=== PATIENT | female | born 1945 | race American Indian/Alaskan Native ===

== ENCOUNTER 2019-06-11 10:28 | Outpatient (CLI) | payer MEDICARE, BC ==
--- NOTE | 2019-06-11 11:27 | Fluoroscopy Report ---
BARIUM SWALLOW Indication: K21.9) GERD/R13.0) DYSPHAGIA. Technique: Single contrast barium technique utilized to evaluate the esophagus. FINDINGS: To begin the exam, swallowing was evaluated in the lateral position under direct fluorosco py. Swallowing was normal. No mucosal irregularity, mass, mass effect, or critical stenosis. Occasional tertiary contractions of the mid to distal esophagus were witnessed during this exam consistent with mild esophageal dysmot ility. No gastroesophageal reflux. No hiatal hernia was seen. The patient was able to ingest a barium tablet without difficulty. IMPRESSION: Mild esophageal dysmotility. Fluoroscopic time: 1.0 minutes Number of fluoroscopic images: 24 Signer Name: Brandan Morris Jr, MD Signed: 06/11/2019 11:23 AM Workstation Name: [id number]
== END 2019-06-11 10:29 | disposition home or self-care (01) ==
LOC: FLUORO 10:28
PROVIDERS: ATTEND Internal Medicine Gastroenterology
DX: K21.9 Gastro-esophageal reflux disease without esophagitis (principal); R13.10 Dysphagia, unspecified
CPT/HCPCS: 74220

== ENCOUNTER 2020-05-01 10:36 | Outpatient (CLI) | payer MEDICARE, BC ==
--- NOTE | 2020-05-01 12:43 | Mammography Report ---
DIGITAL SCREENING MAMMOGRAM WITH CAD, 05/01/2020 INDICATION: Routine screening mammography. TECHNIQUE: Digital bilateral 2D mammography was obtained in the craniocaudal and mediolateral obliq ue projections. This examination was interpreted with the benefit of Computer-Aided Detection analysi s. COMPARISON: 01/10/2019, 08/24/2016 FINDINGS: Breast Density: The breasts are almost entirely fatty. There is no evidence of dominant mass, suspicious calcifications or architectural distortion in eithe r breast. IMPRESSION: Follow up recommendation: Routine yearly BI-RADS Category 1: Negative. A "normal" or negative report should not discourage follow up or biopsy of a clinically significant f inding. A written summary of these findings will be mailed to the patient. The patient will be entered into a mammography reporting system which will generate a reminder letter for the patient's next appointmen t at the appropriate interval. The [employer] recommends yearly mammograms starting at age 40 and continuing as l maria d as a woman is in good health. Breast MRI is recommended for women with an approximate 20-25% or greater lifetime risk of breast cancer, including women with a strong family history of breast or ova tri cancer or who have been treated for Hodgkin's disease. Signer Name: Wolf Amos MD Signed: 05/01/2020 12:38 PM Workstation Name: [id number]
--- NOTE | 2020-05-01 13:05 | XRay Report ---
CHEST 2 VIEWS INDICATION / CLINICAL INFORMATION: 786.2 COUGH. COMPARISON: None available. FINDINGS: SUPPORT DEVICES: None. HEART / MEDIASTINUM: No significant abnormality. LUNGS / PLEURA: No significant pulmonary or pleural abnormality. No pneumothorax. ADDITIONAL FINDINGS: Degenerative change in the thoracic spine IMPRESSION: No acute disease Signer Name: Patrick March MD FACR Signed: 05/01/2020 1:00 PM Workstation Name: [id number]
== END 2020-05-01 10:37 | disposition home or self-care (01) ==
LOC: MAMMO 10:36
PROVIDERS: ATTEND Internal Medicine
DX: Z12.31 Encounter for screening mammogram for malignant neoplasm of breast (principal); R05 Cough
CPT/HCPCS: 71046; 77067

== ENCOUNTER 2021-11-27 09:24 | Outpatient (CLI) | payer MEDICARE, BC ==
--- NOTE | 2021-11-30 13:03 | Mammography Report ---
DIGITAL SCREENING MAMMOGRAM WITH CAD, 11/27/2021 CLINICAL INFORMATION / INDICATION: Routine screening mammography. SCREENING MAMMOGRAM TECHNIQUE: Digital bilateral 2D mammography was obtained in the craniocaudal and mediolateral obliqu e projections. This examination was interpreted with the benefit of Computer-Aided Detection analysis . COMPARISON: 04/16/2015 through 05/01/2020. FINDINGS: Breast Density: The breasts are almost entirely fatty. No dominant mass, suspicious calcifications, or architectural distortion in either breast. Benign-appearing nodularity bilaterally is stable. IMPRESSION: No mammographic evidence of malignancy. Follow up recommendation: Routine yearly BI-RADS Category 2: BENIGN. A "normal" or negative report should not discourage follow up or biopsy of a clinically significant f inding. A written summary of these findings will be mailed to the patient. The patient will be entered into a mammography reporting system which will generate a reminder letter for the patient's next appointmen t at the appropriate interval. The [employer] recommends yearly mammograms starting at age 40 and continuing as l maria d as a woman is in good health. Breast MRI is recommended for women with an approximate 20-25% or greater lifetime risk of breast cancer, including women with a strong family history of breast or ova tri cancer or who have been treated for Hodgkin's disease. Signer Name: Gama Robins MD Signed: 11/30/2021 12:58 PM Workstation Name: [email or web address]
== END 2021-11-27 09:25 | disposition home or self-care (01) ==
LOC: MAMMO 09:24
PROVIDERS: ATTEND Internal Medicine
DX: Z12.31 Encounter for screening mammogram for malignant neoplasm of breast (principal)
CPT/HCPCS: 77067